=== PATIENT | male | born 1980 ===

== ENCOUNTER 2017-03-16 02:26 | Inpatient (IN) ==
--- NOTE | 2017-03-16 03:08 | Emergency Department Note ---
I, Maddie Guido, am scribing for, and in the presence of, Paola Sawant DO 02:57. IJese Debra, DO, personally performed the services described in this documentation, ascribed by Maddie Guido in my presence, and it is both accurate and complete . Arrival - Arrival Chief Complaint: Extremity Problem ED Nursing Triage Note: C/O Wound to left great toe. Onset last week- Pt reports that he is supposed to be on Metformin and Glipizide, but doesn't take them. Pt was transferred from [facility] for further evaluation Mode of Arrival: Stretcher Limitations: No Limitations Source: Patient Time Seen by Provider: 03/16/17 02:36 - History of Present Illness HPI Narrative: Pt is a 36 y/o male who was transferred from [facility] for further evaluation of left great toe wound that has been ongoing for unknown time. Pt notes having some drainage. Pt is DM and is non compliant with taking Metformin and Glipizide medications. Onset (ago): unknown Consistency: constant Severity: moderate Severity scale (1-10): 7 Quality: aching Allergies/Adverse Reactions: Allergies Allergy/AdvReac Type Severity Reaction Status Date / Time No Known Allergies Allergy Unverified 03/16/17 02:29 Home Medications: Home Medications Medication Instructions Recorded Confirmed Type Aspirin Tab 325 mg PO DAILY 06/22/16 06/22/16 History Clotrimazole/Betamethasone Dip 1 applic TOP BID 06/22/16 06/22/16 History [Clotrimazole/Betamethasone Cream] Lisinopril [Prinivil] 10 mg PO DAILY 06/22/16 06/22/16 History Mupirocin 2% Oint [Bactroban 2% 1 applic TOP TID 06/22/16 06/22/16 History Oint] glipiZIDE XL [Glucotrol Xl] 5 mg PO DAILY W/BREAKFAST 06/22/16 06/22/16 History metFORMIN [Glucophage] 1,000 mg PO BID W/MEALS 06/22/16 06/22/16 History No Known Home Medications [No 03/16/17 03/16/17 History Known Home Medications] Review of System - Review of System 12 point system: reviewed and no additional remarkable complaints except as stated - Review of System Constitutional: Absent: fever Musculoskeletal: Present: leg pain (left great toe wound with drainage). Absent : arm pain, back pain, neck pain Skin: Absent: rash Neurological: Absent: headache Medical,Surgical,& Family Hx - Medical History Cardio: History of: Hypertension Endocrine: History of: Diabetes Mellitus (NIDDM) - Family History Family History: Reports;: Family Diabetes - Social History Smoking Status: Never smoker Frequency of Alcohol Use: Frequently Type of Drug Use: None Exam Vital Signs: Vital Signs Temperature 99.3 F 03/16/17 02:31 Pulse Rate 83 03/16/17 02:31 Respiratory Rate 20 03/16/17 02:31 Blood Pressure 106/70 03/16/17 02:31 O2 Sat by Pulse Oximetry 97 03/16/17 02:30 - General General appearance: alert, in no apparent distress, obese (mildly) - Head Head exam: Present: atraumatic, normocephalic - Eye Eye exam: Present: PERRL, EOMI - ENT ENT exam: Present: mucous membranes moist. Absent: mucous membranes dry - Neck Neck exam: Present: full ROM. Absent: tenderness - Chest Chest inspection: Present: symmetric chest wall rise. Absent: tenderness - Respiratory Respiratory exam: Present: normal lung sounds bilaterally. Absent: respiratory distress - Cardiovascular Cardiovascular exam: Present: regular rate, normal rhythm, normal heart sounds - Abdominal Exam Abdominal exam: Present: soft. Absent: distention, tenderness - Extremities Exam Extremities exam: Present: full ROM, tenderness (left great toe is blacken with purulent drainage but good pulses). Absent: pedal edema - Neurological Exam Neurological exam: Present: alert, oriented X3, CN II-XII intact. Absent: motor sensory deficit - Psychiatric Psychiatric exam: Present: normal affect, normal mood - Skin Skin exam: Present: warm, dry Course Course Narrative: spoke with hospitalist who will admit pt Disposition Clinical Impression: Decubital ulcer Case discussed with: patient Disposition: Still a Patient Condition: Stable Time of Disposition: 04:27
[2017-03-16] MEDS ORDERED: cefTRIAXone 1,000 MG VIAL ONE (04:45)
[2017-03-16] MEDS ORDERED: GLUCAGON 1 MG VIAL IM PRN (05:09)
[2017-03-16] MEDS ORDERED: DEXTROSE 50% 25 GM/50 ML VIAL IV PRN (05:09)
[2017-03-16] MEDS ORDERED: DOCUSATE SODIUM 100 MG CAPSULE PO PRN (05:09)
[2017-03-16] MEDS ORDERED: ONDANSETRON 4 MG/2 ML VIAL IV PRN ×2 (05:09→11:55)
--- NOTE | 2017-03-16 05:17 | Hospitalist History & Physical ---
Assessment and Plan (1) Diabetic foot infection Status: Acute Assessment and plan: Patient appeared to have diabetic foot infection is patient involved left big toe with the wound. Will consult Dr. Cotto was on-call for surgery. I will start on vancomycin and Zosyn follow blood cultures which will be ordered and need infectious disease to assist with antibiotic management. I will order the x-ray of the foot and also ordered the venous Dopplers due to associated swelling of the left lower extremities which could be just infection but want to make sure there is no associated DVT. Patient is at present placed on DVT prophylaxis with Lovenox but venous Doppler has to be followed up to go to therapeutic dose if there is underlying DVT Current Visit: Yes (2) Diabetes mellitus Status: Chronic Assessment and plan: Patient noncompliant to oral hypoglycemic. I will monitor blood sugar with the short-acting insulin coverage. Patient is kajal to insulin I will start with low-dose sliding scale check hemoglobin A1c Current Visit: Yes (3) History of hypertension Status: Chronic Assessment and plan: Patient has history of hypertension but his systolic blood pressure is in low 100. Patient is on lisinopril I will hold this for now. Although LOREN inhibitor associated with the renal protection defect and diabetes, I will hold it at present due to borderline low blood pressure Current Visit: Yes History of Present Illness Chief complaint: Wound left big toe History of present illness: Mr. Tucker is a 36 year old male with history of diabetes mellitus and hypertension. He started noting pus coming out of his left big toe yesterday with some subjective fever and chills. He noted a blister more than a week ago left big toe which now progressed to wound and started having pus coming out. No history of fever reported and there is no pain in the foot associated with that . He went to [facility] and was transferred to [facility] ER. I do not have a record from his visit at [facility]. Was noted to have a temperature of 99.3 blood pressure 106/70 he has history of diabetes on oral hypoglycemic but has not been taking the medication I do not know his blood sugar reading at [facility] but here limited lab work done and noted has creatinine 0.69 and glucose 195. He denies any nausea vomiting diarrhea urinary symptoms cough chest pain shortness of breath. He did have a headache for which he was given Tylenol at the [facility] and is resolved now. Home Medications Medication Instructions Recorded Confirmed Type Aspirin Tab 325 mg PO DAILY 06/22/16 06/22/16 History Clotrimazole/Betamethasone Dip 1 applic TOP BID 06/22/16 06/22/16 History [Clotrimazole/Betamethasone Cream] Lisinopril [Prinivil] 10 mg PO DAILY 06/22/16 06/22/16 History Mupirocin 2% Oint [Bactroban 2% 1 applic TOP TID 06/22/16 06/22/16 History Oint] glipiZIDE XL [Glucotrol Xl] 5 mg PO DAILY W/BREAKFAST 06/22/16 06/22/16 History metFORMIN [Glucophage] 1,000 mg PO BID W/MEALS 06/22/16 06/22/16 History No Known Home Medications [No 03/16/17 03/16/17 History Known Home Medications] Allergies Allergy/AdvReac Type Severity Reaction Status Date / Time No Known Allergies Allergy Unverified 03/16/17 02:29 Medical,Surgical,& Family Hx - Medical History Cardio: History of: Hypertension Endocrine: History of: Diabetes Mellitus (NIDDM) - Surgical History Additional Surgical History: Patient's had wound left knee required surgery in 2002 detail of the procedure not available - Family History Family History: Reports;: Family Diabetes - Social History Smoking Status: Never smoker Frequency of Alcohol Use: Frequently Type of Drug Use: None Review of systems: Review of system was done comprehensively negative unless noted in HPI Exam - Constitutional Vitals: Period Temp Pulse Resp BP Sys/Nolasco Pulse Ox Last 24 Hr 99.3 F-99.3 F 83-85 20-20 106-106/70-70 97 General appearance: no acute distress, over weight - Head Head exam: Present: normal inspection, normocephalic, atraumatic - Eye Eye exam: Present: EOMI Pupils: Present: JANIE, normal accommodation - ENT ENT exam: Present: normal oropharynx - Neck Neck exam: Present: normal inspection. Absent: lymphadenopathy, meningismus - Respiratory Respiratory exam: Present: clear to auscultation bilaterally. Absent: chest wall tenderness, rales, rhonchi - Cardiovascular Cardiovascular exam: Present: regular rate and rhythm. Absent: tachycardia - GI/Abdominal GI/Abdominal exam: Present: normal bowel sounds, soft. Absent: distended, guarding, mass, tenderness - Extremities Exam Extremities exam: Present: edema (Left lower extremities especially leg and foot. There is a wWound on the big toe of the left foot with gangrenous tissue covering the solar aspect. Swelling of the left leg and foot) - Neurological Exam Neurological exam: Present: alert, oriented X3 - Psychiatric Psychiatric exam: Present: normal affect, normal mood - Skin Skin exam: Present: normal color
[2017-03-16 06:56] LABS: Basophils # 0.1 10*3/uL (0.0-0.2); Basophils % 0.4 % (0.0-0.8); Eosinophils # 0.2 10*3/uL (0.0-0.87); Eosinophils % 1.8 % (0.00-10.9); Hematocrit 39.7 VOL% (42.0-52.0); Hemoglobin 14.4 GM/DL (14.0-18.0); Immature Granulocytes % 0.4 %; Immature Granulocytes Absolute 0.05 #; Lymphocytes # 2.5 10*3/uL (1.4-4.0); Lymphocytes % 20.2 % (21.2-54.2); Mean Corpuscular HGB Conc 36.3 GM/DL (32-36); Mean Corpuscular Hemoglobin 31 PG (27-34); Mean Platelet Volume 10.1 FL (9.6-12.0); Monocytes # 1.6 10*3/uL (0.11-0.8); Monocytes % 13.1 % (1.7-12.7); Neutrophils # 7.9 10*3/uL (1.4-7.4); Neutrophils % 64.1 % (38.7-73.9); Platelet Count 257 T/CUMM (130-400); Red Blood Count 4.67 MC/CUMM (3.8-5.5); Red Cell Distribution Width 12.4 % (9.3-17.3); White Blood Count 12.3 T/CUMM (4-12)
[2017-03-16] MEDS: SODIUM CHLORIDE 0.45% 1,000 ML IV SCH (07:03)
[2017-03-16] MEDS: PIPERACILLIN/TAZOBACTAM 3,375 MG in SODIUM CHLORIDE 0.9% 100 ML IV SCH ×2 (07:03→16:48)
[2017-03-16 07:27] LABS: Calcium 8.6 MG/DL (8.5-10.1); Osmolality,Calculated 276.2 MOS/KG (273-304); Potassium 4.1 MMOL/L (3.5-5.1)
--- NOTE | 2017-03-16 08:37 | XRay Report ---
History: Diabetic foot infection. Ulcer left great toe Date: 03/16/2017 Study: Left foot 3 views Comparison exam: No previous There is soft tissue swelling and irregularity associated with the left great toe distally. There is no definite plain film sign of acute osteomyelitis. There is a nondisplaced oblique intra-articular fracture of the base of the fifth proximal phalanx with near-anatomic alignment. This is thought to be recent, possibly subacute, though no definite callus formation is identified. There is mild osteophyte formation and eburnation and joint space narrowing at the first MTP joint. There is mild plantar calcaneal spur formation. There is mild osteophyte formation at the tibiotalar joint. There is soft tissue swelling about the foot in general as well. Impression: No evidence to suggest osteomyelitis Subacute versus acute nondisplaced intra-articular fracture base of the fifth proximal phalanx with near-anatomic alignment Soft tissue swelling PROCEDURE INTERPRETED AT [facility] DEPARTMENT OF RADIOLOGY Final Report Signed by: Dr. Ebony West
--- NOTE | 2017-03-16 08:45 | General Surg History&Physical ---
Assessment and Plan - Time spent with patient Time spent with patient: Less than 30 minutes (1) Diabetic foot infection Status: Acute Assessment and plan: He appears to have wet gangrene of his left great toe and this toe is clearly unsalvageable. This was discussed with the patient. This appears to possibly have an associated necrotizing soft tissue infection and he needs emergent toe amputation and possible debridement of his foot. He understands that this toe could jeopardize his entire lower extremity and make him quite ill. Toe amputation along with the risks of surgery were discussed in detail with the patient and he wishes to proceed. Current Visit: Yes History of Present Illness Chief complaint: Infected left great toe History of present illness: Mr. Tucker is a 36 year old male Who for about 10 days has had increased swelling and discoloration and his left toe turning black. He denies fever or chills. He denies feeling ill. He does not know of any aggravating or alleviating factors. It is not painful. Home Medications Medication Instructions Recorded Confirmed Type Aspirin Tab 325 mg PO DAILY 06/22/16 06/22/16 History Clotrimazole/Betamethasone Dip 1 applic TOP BID 06/22/16 06/22/16 History [Clotrimazole/Betamethasone Cream] Lisinopril [Prinivil] 10 mg PO DAILY 06/22/16 06/22/16 History Mupirocin 2% Oint [Bactroban 2% 1 applic TOP TID 06/22/16 06/22/16 History Oint] glipiZIDE XL [Glucotrol Xl] 5 mg PO DAILY W/BREAKFAST 06/22/16 06/22/16 History metFORMIN [Glucophage] 1,000 mg PO BID W/MEALS 06/22/16 06/22/16 History No Known Home Medications [No 03/16/17 03/16/17 History Known Home Medications] Allergies Allergy/AdvReac Type Severity Reaction Status Date / Time No Known Allergies Allergy Unverified 03/16/17 02:29 Medical,Surgical,& Family Hx - Medical History Cardio: History of: Hypertension Endocrine: History of: Diabetes Mellitus (NIDDM) - Family History Family History: Reports;: Family Diabetes - Social History Smoking Status: Never smoker Frequency of Alcohol Use: Frequently Type of Drug Use: None Exam - Constitutional Vitals: Period Temp Pulse Resp BP Sys/Nolasco Pulse Ox Last 24 Hr 97.9 F-99.3 F 72-85 18-20 106-134/70-79 96-98 General appearance: no acute distress - Head Head exam: Present: normocephalic - Eye Eye exam: Absent: scleral icterus - ENT Mouth exam: Present: normal voice - Neck Neck exam: Present: trachea midline - Respiratory Respiratory exam: Present: clear to auscultation bilaterally. Absent: accessory muscle use - Cardiovascular Cardiovascular exam: Present: RRR - GI/Abdominal GI/Abdominal exam: Present: soft. Absent: distended, tenderness - Extremities Exam Extremities exam: Present: other (The left great toe is black and necrotic and appears to have wet gangrene. There is some erythema proximal to this. I do not appreciate crepitus or tenderness in his foot.). Absent: edema - Constitutional Constitutional: Absent: chills, fever(s) - Cardiovascular Cardiovascular: Absent: chest pain at rest, chest pain with activity, dyspnea, dyspnea on exertion, syncope - Respiratory Respiratory: Absent: dyspnea, hemoptysis, dyspnea on exertion - Gastrointestinal Gastrointestinal: Absent: abdominal pain, hematemesis, hematochezia, nausea, vomiting, jaundice - Genitourinary Genitourinary: Absent: hematuria - Musculoskeletal Musculoskeletal: Absent: back pain - Neurological Neurological: Absent: focal weakness, syncope - Endocrine Endocrine: Absent: polyuria Hematologic/Lymphatic: Absent: easy bleeding, easy bruising Results - Labs CBC & BMP: 03/16/17 06:46 03/16/17 06:46 Lab Results: I have reviewed the past 24 hour labs
[2017-03-16] MEDS: INSULIN LISPRO 100 UNIT/ML SUBCUT SCH ×4 (10:35→21:54)
[2017-03-16] MEDS: ENOXAPARIN 40 MG/0.4 ML SYRINGE SUBCUT SCH (10:36)
[2017-03-16] MEDS ORDERED: BUPIVACAINE 0.25% 50 ML VIAL ONE (10:36)
[2017-03-16] MEDS: PANTOPRAZOLE 40 MG TABLET PO SCH (10:36)
[2017-03-16] MEDS ORDERED: PROPOFOL 200 MG/20 ML VIAL IV ONE (10:58)
[2017-03-16] MEDS: VANCOMYCIN INJ 1,500 MG in SODIUM CHLORIDE 0.9% 500 ML IV SCH ×2 (11:10→22:08)
--- NOTE | 2017-03-16 11:39 | Operative Note ---
Date of procedure: 03/16/17 Pre-op diagnosis: Wet gangrene left great toe Post-op diagnosis: same Procedure: Ray amputation left great toe and metatarsal head Findings and technique: After informed consent was obtained the patient was brought the operating room and placed in supine position. After IV sedation was administered the patient's left foot was prepped and draped in usual sterile fashion. Local anesthesia was infiltrated and an elliptical incision made at the base of the toe extending this dorso medially over the first metatarsal. The metatarsal head was dissected free and the metatarsal transected with a bone cutter and the metatarsal head and toe all removed en bloc as a single specimen. No necrosis was seen to extend up into the foot. All of the tissue that I cut across was viable. Hemostasis was obtained with electrocautery and the wound copiously irrigated and the wound then closed with interrupted 3-0 nylon suture leaving the end of the ellipse open and packed with iodoform gauze. A bulky dressing was then applied. Anesthesia: MAC, local Surgeon / Physician: Carlos Cotto III. Estimated blood loss: other (50 mL) Specimens: other (Great toe and metatarsal head) Condition: stable Disposition: PACU Results - Labs CBC & BMP: 03/16/17 06:46 03/16/17 06:46 Discharge Plan - Discharge Medications No Action metFORMIN [Glucophage] 1,000 mg PO BID W/MEALS glipiZIDE XL [Glucotrol Xl] 5 mg PO DAILY W/BREAKFAST Mupirocin 2% Oint [Bactroban 2% Oint] 1 applic TOP TID Lisinopril [Prinivil] 10 mg PO DAILY Clotrimazole/Betamethasone Dip [Clotrimazole/Betamethasone Cream] 1 applic TOP BID Aspirin Tab 325 mg PO DAILY No Known Home Medications [No Known Home Medications] - Follow Up or Referral - Forms/Instructions
[2017-03-16] MEDS ORDERED: HYDROmorphone 2 MG/1 ML VIAL ONE (11:48)
[2017-03-16] MEDS ORDERED: ONDANSETRON 4 MG/2 ML VIAL ONE (11:48)
[2017-03-16] MEDS ORDERED: HYDROmorphone 2 MG/1 ML VIAL IV PRN (11:55)
--- NOTE | 2017-03-16 14:33 | Ultrasound Report ---
History: Left leg swelling Date: 03/16/2017 Study: Left lower extremity color-flow venous Doppler study Comparison exam: No previous similar available Color Doppler, wave form analysis, and compression analysis of the deep veins of the left lower extremity from the common femoral vein level through the popliteal vein level shows that the veins are readily compressible. There is no abnormal intraluminal material to suggest thrombus. Waveform analysis is unremarkable. Ultrasound images were captured and archived Impression: No evidence of DVT on the left PROCEDURE INTERPRETED AT [facility] DEPARTMENT OF RADIOLOGY Final Report Signed by: Dr. Ebony West
--- NOTE | 2017-03-16 15:43 | Anesthesia Post-Op ---
Anesthesia Post OP - Post Ansesthetic Evaluation Patient seen in post op: Yes Resp: within normal limits CV: within normal limits Mental: within normal limits Temp: within normal limits [id number]: within normal limits Nausea and Vomiting: within normal limits Pain: within normal limits
[2017-03-16] MEDS ORDERED: KETAMINE 500 MG/10 ML VIAL ONE (15:46)
[2017-03-16] MEDS ORDERED: fentaNYL 100 MCG/2 ML VIAL ONE (15:46)
[2017-03-16] MEDS ORDERED: MIDAZOLAM 2 MG/2 ML VIAL ONE (15:46)
[2017-03-17] MEDS: PIPERACILLIN/TAZOBACTAM 3,375 MG in SODIUM CHLORIDE 0.9% 100 ML IV SCH ×3 (00:19→17:29)
[2017-03-17 05:24] LABS: Basophils # 0.1 10*3/uL (0.0-0.2); Basophils % 0.6 % (0.0-0.8); Eosinophils # 0.3 10*3/uL (0.0-0.87); Eosinophils % 3.4 % (0.00-10.9); Hematocrit 38.4 VOL% (42.0-52.0); Hemoglobin 13.6 GM/DL (14.0-18.0); Immature Granulocytes % 0.3 %; Immature Granulocytes Absolute 0.03 #; Lymphocytes # 1.9 10*3/uL (1.4-4.0); Lymphocytes % 21.8 % (21.2-54.2); Mean Corpuscular HGB Conc 35.4 GM/DL (32-36); Mean Corpuscular Hemoglobin 30 PG (27-34); Mean Corpuscular Volume 85.3 FL (87-102); Mean Platelet Volume 10.1 FL (9.6-12.0); Monocytes # 0.9 10*3/uL (0.11-0.8); Monocytes % 10.6 % (1.7-12.7); Neutrophils # 5.5 10*3/uL (1.4-7.4); Neutrophils % 63.3 % (38.7-73.9); Platelet Count 211 T/CUMM (130-400); Red Cell Distribution Width 12.3 % (9.3-17.3); White Blood Count 8.8 T/CUMM (4-12)
[2017-03-17 05:53] LABS: Osmolality,Calculated 280.5 MOS/KG (273-304); Potassium 3.8 MMOL/L (3.5-5.1)
--- NOTE | 2017-03-17 06:13 | Event Note ---
He feels well. He has minimal pain. His dressing is dry and he is afebrile. Will probably take down his dressing tomorrow.
[2017-03-17] MEDS: INSULIN LISPRO 100 UNIT/ML SUBCUT SCH ×4 (07:55→20:23)
[2017-03-17] MEDS: PANTOPRAZOLE 40 MG TABLET PO SCH (10:21)
[2017-03-17] MEDS: ENOXAPARIN 40 MG/0.4 ML SYRINGE SUBCUT SCH (10:21)
[2017-03-17] MEDS: SODIUM CHLORIDE 0.45% 1,000 ML IV SCH ×2 (10:24→20:30)
[2017-03-17] MEDS ORDERED: MORPHINE 2 MG/1 ML SYRINGE IV PRN (11:16)
--- NOTE | 2017-03-17 11:50 | Hospitalist Progress Note ---
Assessment and Plan (1) Hypertension Status: Acute Assessment and plan: Restart lisinopril Current Visit: Yes (2) Diabetic foot infection Status: Acute Assessment and plan: Surgery managing s/p amputation of left great toe and metatarsal head Continue zosyn and vancomycin for now Current Visit: Yes (3) Diabetes mellitus Status: Chronic Assessment and plan: Starting nph SSI Current Visit: Yes Hospitalist: Subjective Interval history: No acute events overnight. Reports some pain in his foot, the pain medicine just makes him go to sleep. Exam - Constitutional Vitals: Period Temp Pulse Resp BP Sys/Nolasco Pulse Ox Last 24 Hr 97.9 F-98.5 F 70-85 16-20 119-169/76-92 90-98 General appearance: over weight - Head Head exam: Present: normocephalic, atraumatic - Eye Eye exam: Present: EOMI Pupils: Present: JANIE - ENT ENT exam: Present: normal exam - Neck Neck exam: Present: normal inspection - Respiratory Respiratory exam: Present: clear to auscultation bilaterally. Absent: rhonchi, wheezes - Cardiovascular Cardiovascular exam: Present: regular rate and rhythm - GI/Abdominal GI/Abdominal exam: Present: normal bowel sounds, soft. Absent: tenderness, rebound - Extremities Exam Extremities exam: Present: normal inspection, other (Left foot wrapped) - Back Exam Back exam: Present: normal inspection - Neurological Exam Neurological exam: Present: alert, oriented X3 - Psychiatric Psychiatric exam: Present: normal affect, normal mood - Skin Skin exam: Present: warm, intact Results - Labs CBC & BMP: 03/17/17 05:04 03/17/17 05:04
[2017-03-17] MEDS: VANCOMYCIN INJ 1,500 MG in SODIUM CHLORIDE 0.9% 500 ML IV SCH ×2 (12:09→23:56)
[2017-03-17] MEDS: LISINOPRIL 10 MG TABLET PO SCH (12:12)
[2017-03-17] MEDS: INSULIN NPH 100 UNIT/ML SUBCUT SCH (17:24)
[2017-03-18] MEDS: PIPERACILLIN/TAZOBACTAM 3,375 MG in SODIUM CHLORIDE 0.9% 100 ML IV SCH ×2 (00:09→09:19)
[2017-03-18 06:16] LABS: Basophils % 0.4 % (0.0-0.8); Eosinophils # 0.3 10*3/uL (0.0-0.87); Eosinophils % 3.7 % (0.00-10.9); Hematocrit 40.6 VOL% (42.0-52.0); Immature Granulocytes % 0.4 %; Immature Granulocytes Absolute 0.03 #; Lymphocytes # 2.2 10*3/uL (1.4-4.0); Lymphocytes % 25.7 % (21.2-54.2); Mean Corpuscular HGB Conc 34.5 GM/DL (32-36); Mean Corpuscular Hemoglobin 30 PG (27-34); Mean Corpuscular Volume 87.5 FL (87-102); Mean Platelet Volume 10.2 FL (9.6-12.0); Monocytes % 11.3 % (1.7-12.7); Neutrophils # 4.9 10*3/uL (1.4-7.4); Neutrophils % 58.5 % (38.7-73.9); Platelet Count 247 T/CUMM (130-400); Red Blood Count 4.64 MC/CUMM (3.8-5.5); Red Cell Distribution Width 12.5 % (9.3-17.3); White Blood Count 8.4 T/CUMM (4-12)
[2017-03-18 06:53] LABS: Magnesium 2.3 MG/DL (1.8-2.4); Osmolality,Calculated 282.4 MOS/KG (273-304); Potassium 4.1 MMOL/L (3.5-5.1)
--- NOTE | 2017-03-18 08:40 | Event Note ---
He feels well. He is afebrile and has a normal white blood cell count. His dressing is dry. We will take down his dressing today and check his wound. He may be ready to go home later today or tomorrow.
[2017-03-18] MEDS: INSULIN NPH 100 UNIT/ML SUBCUT SCH ×2 (09:03→17:54)
[2017-03-18] MEDS: LISINOPRIL 10 MG TABLET PO SCH (09:08)
[2017-03-18] MEDS: PANTOPRAZOLE 40 MG TABLET PO SCH (09:11)
[2017-03-18] MEDS: INSULIN LISPRO 100 UNIT/ML SUBCUT SCH ×4 (09:15→22:18)
[2017-03-18] MEDS: ENOXAPARIN 40 MG/0.4 ML SYRINGE SUBCUT SCH (09:17)
--- NOTE | 2017-03-18 12:29 | Hospitalist Progress Note ---
Assessment and Plan (1) Hypertension Status: Acute Assessment and plan: lisinopril Current Visit: Yes (2) Diabetic foot infection Status: Acute Assessment and plan: Surgery managing s/p amputation of left great toe and metatarsal head Discontinue vanc and zosyn, start levaquin and clindamycin po Current Visit: Yes (3) Diabetes mellitus Status: Chronic Assessment and plan: Increasing NPH SSI Current Visit: Yes Hospitalist: Subjective Interval history: No acute events overnight. Reports some pain, but managable with pain medications. Per surgery, possible discharge soon. Exam - Constitutional Vitals: Period Temp Pulse Resp BP Sys/Nolasco Pulse Ox Last 24 Hr 97.7 F-98.9 F 65-72 18-20 119-172/74-95 93-98 General appearance: over weight - Head Head exam: Present: normocephalic, atraumatic - Eye Eye exam: Present: EOMI Pupils: Present: JANIE - ENT ENT exam: Present: normal exam - Neck Neck exam: Present: normal inspection - Respiratory Respiratory exam: Present: clear to auscultation bilaterally. Absent: rhonchi, wheezes - Cardiovascular Cardiovascular exam: Present: regular rate and rhythm - GI/Abdominal GI/Abdominal exam: Present: normal bowel sounds, soft. Absent: tenderness, rebound - Extremities Exam Extremities exam: Present: edema (left foot wrapped) - Back Exam Back exam: Present: normal inspection - Neurological Exam Neurological exam: Present: alert, oriented X3 - Psychiatric Psychiatric exam: Present: normal affect, normal mood - Skin Skin exam: Present: warm, intact Results - Labs CBC & BMP: 03/18/17 05:28 03/18/17 05:28
--- NOTE | 2017-03-18 12:29 | Pathology Report from [facility] ---
[facility] [place] # : [id number] PATIENT NAME : Reji Tucker ORDERING DR : LUIGI ODELL III, MD CLINICAL HX: Infected great toe POST-OP DX: Same SPECIMEN INFO: LT great toe GROSS DESCRIPTION: Received in formalin labeled REJI TUCKER is a left great toe and distal metatarsal measuring 9 x 3.5 x 3.2 cm. The skin is light vidal with skin sloughing present. There is a large hemorrhagic ulcerated area measuring up to 5.5 x 3.5 cm located on the side and back of the distal portion of the toe. Special Education Administrator sections of gangrenous appearing tissue are submitted in one cassette. DIAGNOSIS FOR REJI TUCKER: LEFT GREAT TOE: Wet gangrene. COLLECTED DATE: 03/18/2017 [facility] [place] REPORT DATE: 03/18/2017 ELECTRONICALLY SIGNED BY: Doug Bloom III, M.D. 03/18/2017 - 9:09:30 [facility]
[2017-03-18] MEDS: SODIUM CHLORIDE 0.45% 1,000 ML IV SCH ×2 (12:50→17:58)
[2017-03-18] MEDS: LEVOFLOXACIN 750 MG TABLET PO SCH (15:58)
[2017-03-18] MEDS: CLINDAMYCIN 150 MG CAPSULE PO SCH ×2 (15:59→23:14)
--- NOTE | 2017-03-18 16:52 | Infectious Disease Consult ---
Assessment and Plan (1) Diabetic foot infection Status: Acute Assessment and plan: This infection was likely polymicrobial but unfortunately we do not have any cultures to guide therapy. Recommendations: Since the infected toe is amputated the patient probably does not require prolonged antibiotic therapy. He had just had his dressing done today so I will take a look at the foot tomorrow. Depending on how it looks will recommend an oral antibiotic therapy for discharge home. Thank you very much for the consult. Will check back on patient tomorrow. Current Visit: Yes (2) Hypertension Status: Acute Current Visit: Yes (3) Diabetes mellitus Status: Chronic Assessment and plan: Uncontrolled with A1c of 10.7% Current Visit: Yes History of Present Illness Chief complaint: Diabetic foot infection History of present illness: Mr. Tucker is a 36 year old male with diabetes which he admits is uncontrolled presented to the hospital 2 days ago with worsening wound to left great toe. He said he had blistered the toe s about a week before with a pair of shoes. The blister got worse and there was eventually drainage of pus from the toe and he had fever up to 100.8. He was admitted started on antibiotics but ultimately required amputation of the great toe. I am asked to advise on antibiotic therapy to go home. The patient never had any fever. Overall he is feeling better. Home Medications Medication Instructions Recorded Confirmed Type Aspirin Tab 325 mg PO DAILY 06/22/16 03/16/17 History Lisinopril [Prinivil] 10 mg PO DAILY 06/22/16 03/16/17 History glipiZIDE XL [Glucotrol Xl] 5 mg PO DAILY W/BREAKFAST 06/22/16 03/16/17 History metFORMIN [Glucophage] 1,000 mg PO BID W/MEALS 06/22/16 03/16/17 History No Known Home Medications [No 03/16/17 03/16/17 History Known Home Medications] Allergies Allergy/AdvReac Type Severity Reaction Status Date / Time No Known Allergies Allergy Unverified 03/16/17 02:29 12 point system: reviewed and no additional remarkable complaints except as stated (Per HPI) Medical,Surgical,& Family Hx - Medical History Cardio: History of: Hypertension Endocrine: History of: Diabetes Mellitus (NIDDM) Musculoskeletal: History of: Amputation (left great toe) - Family History Family History: Reports;: Family Diabetes - Social History Smoking Status: Never smoker Frequency of Alcohol Use: Frequently Type of Drug Use: None Infectious Disease Exam H&P - Constitutional Vitals: Vital Signs Temp Pulse Resp BP Pulse Ox 98.5 F 69 20 150/80 97 03/18/17 15:58 03/18/17 15:58 03/18/17 15:58 03/18/17 15:58 03/18/17 15:58 Intake and Output 03/18/17 03/18/17 03/18/17 07:59 15:59 23:59 Intake Total 1060 / 1060 Output Total 2 / 2 Balance 1058 / 1058 Intake: IV 700 / 700 Zosyn 3,375 mg In Ns 100 200 / 200 ml @ 25 mls/hr IV Q8H JAYNA Rx#:[id number] Vancomycin Inj 1,000 mg 500 / 500 In Ns 500 ml @ 250 mls/hr IV Q12H JAYNA Rx#: [id number] Oral 360 / 360 Output: Urine 2 / 2 Other: # Voids 2 Exam: General: Patient comfortable HEENT: Mucous membranes pink and moist, anicteric acyanotic, JANIE, no oropharyngeal exudates Neck: Supple, no thyroid gland enlargement, no lymphadenopathy Respiratory system: Breath sounds vesicular, no crepitations or wheezes Cardiovascular: Normal S1 and S2, no murmurs appreciated Abdomen: Normal bowel sounds, soft nontender throughout, no organomegaly or mass Genitourinary: No suprapubic pain or bladder distention Extremities: no edema, left foot bandaged Skin: No rash Reports - Labs CBC & BMP: 03/18/17 05:28 03/18/17 05:28 Labs: Laboratory Results - last 24 hr 03/17/17 03/18/17 03/18/17 19:52 05:28 05:28 WBC 8.4 RBC 4.64 Hgb 14.0 Hct 40.6 L MCV 87.5 MCH 30 MCHC 34.5 RDW 12.5 Plt Count 247 MPV 10.2 Neut % (Auto) 58.5 Lymph % (Auto) 25.7 [place] % (Auto) 11.3 Eos % (Auto) 3.7 Baso % (Auto) 0.4 Neut # (Auto) 4.9 Lymph # (Auto) 2.2 [place] # (Auto) 1.0 H Eos # (Auto) 0.3 Baso # (Auto) 0.0 Immature Gran % 0.4 Nucleated RBC % 0.0 Immature Gran # 0.03 Nucleated RBCs # 0.00 Sodium 140 Potassium 4.1 Chloride 103 Carbon Dioxide 29 Anion Gap 12.1 BUN 5 L Creatinine 0.90 GFR Calculation 134 BUN/Creatinine Ratio 5.00 L Glucose 229 H POC Glucose 290 H Calculated Osmolality 282.4 Calcium 8.0 L Magnesium 2.3 03/18/17 03/18/17 03/18/17 06:52 11:20 15:31 WBC RBC Hgb Hct MCV MCH MCHC RDW Plt Count MPV Neut % (Auto) Lymph % (Auto) [place] % (Auto) Eos % (Auto) Baso % (Auto) Neut # (Auto) Lymph # (Auto) [place] # (Auto) Eos # (Auto) Baso # (Auto) Immature Gran % Nucleated RBC % Immature Gran # Nucleated RBCs # Sodium Potassium Chloride Carbon Dioxide Anion Gap BUN Creatinine GFR Calculation BUN/Creatinine Ratio Glucose POC Glucose 226 H 257 H 246 H Calculated Osmolality Calcium Magnesium - Reports Microbiology: No wound cultures were done
[2017-03-19 04:28] LABS: Basophils % 0.3 % (0.0-0.8); Eosinophils # 0.2 10*3/uL (0.0-0.87); Eosinophils % 2.6 % (0.00-10.9); Hematocrit 38.4 VOL% (42.0-52.0); Hemoglobin 13.5 GM/DL (14.0-18.0); Immature Granulocytes % 0.3 %; Immature Granulocytes Absolute 0.03 #; Lymphocytes # 2.6 10*3/uL (1.4-4.0); Lymphocytes % 27.7 % (21.2-54.2); Mean Corpuscular HGB Conc 35.2 GM/DL (32-36); Mean Corpuscular Hemoglobin 30 PG (27-34); Mean Corpuscular Volume 85.1 FL (87-102); Mean Platelet Volume 10.2 FL (9.6-12.0); Monocytes % 11.2 % (1.7-12.7); Neutrophils # 5.4 10*3/uL (1.4-7.4); Neutrophils % 57.9 % (38.7-73.9); Platelet Count 249 T/CUMM (130-400); Red Blood Count 4.51 MC/CUMM (3.8-5.5); Red Cell Distribution Width 12.1 % (9.3-17.3); White Blood Count 9.3 T/CUMM (4-12)
[2017-03-19] MEDS: CLINDAMYCIN 150 MG CAPSULE PO SCH (05:07)
[2017-03-19] MEDS: SODIUM CHLORIDE 0.45% 1,000 ML IV SCH (06:49)
[2017-03-19] MEDS: INSULIN LISPRO 100 UNIT/ML SUBCUT SCH ×2 (08:05→12:45)
[2017-03-19] MEDS: INSULIN NPH 100 UNIT/ML SUBCUT SCH (08:34)
[2017-03-19] MEDS: PANTOPRAZOLE 40 MG TABLET PO SCH (08:34)
[2017-03-19] MEDS: LISINOPRIL 10 MG TABLET PO SCH (08:34)
[2017-03-19] MEDS: ENOXAPARIN 40 MG/0.4 ML SYRINGE SUBCUT SCH (08:34)
--- NOTE | 2017-03-19 08:42 | Discharge Summary ---
<Megan Beltre - Last Filed: 03/19/17 08:32> Hospital Course - Hospital Course Hospital Course: This is a very pleasant 36-year-old male that presented to the ED at [facility] on March 16, 2017 as a lateral transfer from the [facility] for further evaluation of an infection of the left great toe. The patient has a very complex medical history significant for hypertension and diabetes. He has a surgical history of left knee surgery secondary to a wound infection in 2002. The patient presented to the [facility] on the above date with a complaint of a left infected great toe. The patient reported the formation of a fluid-filled blister to the left great toe 1 week prior to presentation. He reported that the wound gradually progressed and he started to have purulent drainage coming out of the left great toe. In addition he reported several episodes of chills accompanied with fever. At the time of presentation at the [facility], his left toe was evaluated and required surgical intervention. He was subsequently transferred to [facility] for continuation of care. He was evaluated at the time of presentation to [facility] an a surgical consult was requested. He was seen by Dr. 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 On March 16, 2017 the patient underwent an elective amputation of the left great toe and metatarsal head under the direction of Dr. Cotto. Empiric antibiotics were continued and an infectious disease consult was requested. His condition is stable, and he has experienced no significant overnight events. Today, we feel that he is indeed appropriate for discharge to follow-up with his primary care physician and Dr. Yadiel Day as directed. He will be discharged with one week of bactrim. I spoke in great detail with the patient regarding the importance of medical and medication compliance. The patient reported noncompliance at the time of admission, however acknowledged understanding of the importance of complying with the suggested medical regimen. Specialty Discharge - Follow Up or Referrals Follow up with: Carlos Cotto III., MD [Physician] - 03/27/17 2:45 pm Discharge Plan - Discharge Medications New HYDROcodone/ACETAMIN 5-325 [[place] 5-325] 1 tablet PO Q4H PRN #30 tablet PRN Reason: Pain Mild (1-3) Sulfameth/Trimeth 800-160 Tab [Bactrim DS Tab] 1 tablet PO BID #14 tablet Continue Lisinopril [Prinivil] 10 mg PO DAILY Aspirin Tab 325 mg PO DAILY glipiZIDE XL [Glucotrol Xl] 5 mg PO DAILY W/BREAKFAST #30 tablet metFORMIN [Glucophage] 1,000 mg PO BID W/MEALS #60 tablet - Follow Up or Referral Follow Up: Carlos Cotto III., MD [Physician] - 03/27/17 2:45 pm - Forms/Instructions Instructions: Diabetic Foot Ulcers (DC) Exam - Constitutional Vitals: Period Temp Pulse Resp BP Sys/Nolasco Pulse Ox Last 24 Hr 97.9 F-100.4 F 62-69 18-20 150-163/79-93 96-100 Discharge Results Procedures and tests throughout hospitalization: Pending Orders 03/16/17 06:46 Blood Culture Stat Labs on day of discharge: Labs from last 24 hours 03/19/17 03/19/17 03/19/17 11:21 07:22 03:56 WBC 9.3 RBC 4.51 Hgb 13.5 L Hct 38.4 L MCV 85.1 L MCH 30 MCHC 35.2 RDW 12.1 Plt Count 249 MPV 10.2 Neut % (Auto) 57.9 Lymph % (Auto) 27.7 [place] % (Auto) 11.2 Eos % (Auto) 2.6 Baso % (Auto) 0.3 Neut # (Auto) 5.4 Lymph # (Auto) 2.6 [place] # (Auto) 1.0 H Eos # (Auto) 0.2 Baso # (Auto) 0.0 Immature Gran % 0.3 Nucleated RBC % 0.0 Immature Gran # 0.03 Nucleated RBCs # 0.00 POC Glucose 196 H 131 H 03/18/17 03/18/17 19:41 15:31 WBC RBC Hgb Hct MCV MCH MCHC RDW Plt Count MPV Neut % (Auto) Lymph % (Auto) [place] % (Auto) Eos % (Auto) Baso % (Auto) Neut # (Auto) Lymph # (Auto) [place] # (Auto) Eos # (Auto) Baso # (Auto) Immature Gran % Nucleated RBC % Immature Gran # Nucleated RBCs # POC Glucose 185 H 246 H Preliminary micro results at discharge 03/16/17 06:46 Blood Culture - Preliminary Blood No growth at 3 days 03/16/17 06:46 Blood Culture - Preliminary Blood No growth at 3 days DS: Provider Date of admission: 03/16/17 05:09 Primary care physician: Eden Ring MD Attending physician on admission: Eulogio Doran MD Consults: 03/16/17 05:09 Consult to Physician [CONS] Routine Comment: Diabetic Foot infection Consulting Provider: Carlos Cotto III. Consulting Provider Notified: No When should Consulting Provider be notified: In am Person Notified: Dr. Cotto Date Notified: 03/16/17 Time Notified: 09:15 Consult Notification Comment: Notified Dr. Cotto while he is making rounds. 03/16/17 05:36 Consult to Pharmacy [CONS] Routine Reason for Pharmacy Consult: Dose/Manage Vancomycin Consult to Physician [CONS] Routine Comment: DFI Consulting Provider: Danielle Camarillo Consulting Provider Notified: Yes When should Consulting Provider be notified: In am Person Notified: michelle yates Date Notified: 03/18/17 Time Notified: 08:53 Discharging clinician: Megan Beltre CNP <Nazraio Rose - Last Filed: 03/19/17 12:13> Hospital Course - Time spent with patient Time with patient DS: Less than 30 minutes Diagnosis - Discharge Diagnosis (1) Hypertension Status: Chronic (2) Diabetic foot infection Status: Resolved (3) Diabetes mellitus Status: Chronic Discharge Plan - Discharge Data Condition at Discharge: Stable Discharge Diet: diabetic diet, low salt diet Activity: increase activity as tolerated Hygiene: no restrictions Weight Bearing at Discharge: weight bear as tolerated Driving: other (no driving when taking narcotic pain medications) Exam - Constitutional General appearance: over weight - Head Head exam: Present: normocephalic, atraumatic - Eye Eye exam: Present: EOMI Pupils: Present: JANIE - ENT ENT exam: Present: normal exam - Neck Neck exam: Present: normal inspection - Respiratory Respiratory exam: Present: clear to auscultation bilaterally - Cardiovascular Cardiovascular exam: Present: regular rate and rhythm - GI/Abdominal GI/Abdominal exam: Present: normal bowel sounds, soft. Absent: tenderness, rebound - Extremities Exam Extremities exam: Present: other (left foot with sutures, no erythema or bleeding noted) - Back Exam Back exam: Present: normal inspection - Neurological Exam Neurological exam: Present: alert, oriented X3 - Psychiatric Psychiatric exam: Present: normal affect, normal mood - Skin Skin exam: Present: warm, intact
[2017-03-19 11:35] VITALS: BP 162/79
--- NOTE | 2017-03-19 12:00 | Infectious Disease Progress ---
Assessment and Plan (1) Diabetic foot infection Status: Acute Assessment and plan: This infection was likely polymicrobial but the gangrenous toe was amputated and there is no gross evidence of residual infection from what I can see clinically. Recommendations: The patient can go home on Bactrim 1 double strength tablet twice a day for 7 days. Current Visit: Yes (2) Hypertension Status: Acute Current Visit: Yes (3) Diabetes mellitus Status: Chronic Assessment and plan: Uncontrolled with A1c of 10.7%. patient informed about this and encouraged to modify diet and lifestyle. Current Visit: Yes Infectious Disease - PN: Subj Interval history: Patient doing well, no fever no nausea vomiting or diarrhea. No cough shortness of breath. Denies pain to left foot. Infectious Disease Exam (PN) - Constitutional Vitals: Temp Pulse Resp BP Pulse Ox 98.5 F 62 18 162/79 96 03/19/17 11:18 03/19/17 11:18 03/19/17 11:18 03/19/17 11:18 03/19/17 11:18 General appearance: over weight Exam: General appearance: no acute distress - Eye Eye exam: Present: EOMI. no icterus Pupils: Present: JANIE - ENT ENT exam: no oropharyhgeal exudates - Extremities Exam Extremities exam: no edema, left greater petition stump noted sutures in situ but the most distal part of the wound is open healthy pink without any drainage. No erythema of the foot. - Skin Skin exam: no rash Results - Labs CBC & BMP: 03/19/17 03:56 03/18/17 05:28 Lab Results: I have reviewed the past 24 hour labs (Blood cultures negative to date) Specialty Discharge - Follow Up or Referrals Follow up with: Carlos Cotto III., MD [Physician] - 03/27/17 2:45 pm
[2017-03-19] MEDS: LEVOFLOXACIN 750 MG TABLET PO SCH (12:45)
== END 2017-03-19 13:46 | disposition home or self-care (01) | DRG 240 ==
LOC: EDBD → EDUNIT# → N.ED 02:26 → N.EDINP 05:09 → SUATTDRO 05:09 → N.3E 05:36
PROVIDERS: ADMIT Internal Medicine; ATTEND Internal Medicine

== ENCOUNTER 2018-10-06 14:55 | Inpatient (IN) ==
[2018-10-06 15:52] LABS: Basophils # 0.1 10*3/uL (0.0-0.2); Basophils % 0.4 % (0.0-0.8); Eosinophils # 0.1 10*3/uL (0.0-0.87); Eosinophils % 0.6 % (0.00-10.9); Hematocrit 40.6 VOL% (42.0-52.0); Hemoglobin 13.8 GM/DL (14.0-18.0); Immature Granulocytes % 0.6 %; Immature Granulocytes Absolute 0.09 #; Lymphocytes # 1.2 10*3/uL (1.4-4.0); Lymphocytes % 7.8 % (21.2-54.2); Mean Corpuscular Hemoglobin 29 PG (27-34); Mean Corpuscular Volume 85.8 FL (87-102); Mean Platelet Volume 10.9 FL (9.6-12.0); Monocytes # 1.4 10*3/uL (0.11-0.8); Monocytes % 9.1 % (1.7-12.7); Neutrophils # 12.3 10*3/uL (1.4-7.4); Neutrophils % 81.5 % (38.7-73.9); Platelet Count 320 T/CUMM (130-400); Red Blood Count 4.73 MC/CUMM (3.8-5.5); Red Cell Distribution Width 12.3 % (9.3-17.3)
[2018-10-06 16:12] LABS: Lactic Acid 2.2 MMOL/L (0.4-2.0)
[2018-10-06 16:13] LABS: Alanine Aminotransferase 19 U/L (16-61); Albumin 2.5 G/DL (3.4-5.0); Alkaline Phosphatase 113 U/L (45-117); Aspartate Amino Transferase 18 U/L (0-37); Blood Urea Nitrogen 17 MG/DL (7-18); Calcium 8.7 MG/DL (8.5-10.1); Glucose 329 MG/DL (74-106); Osmolality,Calculated 269.2 MOS/KG (273-304); Potassium 4.3 MMOL/L (3.5-5.1); Sodium 127 MMOL/L (136-145); Total Protein 9.9 G/DL (6.4-8.3)
[2018-10-06] MEDS ORDERED: SODIUM CHLORIDE 0.9% 1,000 ML IV STA (16:24)
[2018-10-06] MEDS ORDERED: VANCOMYCIN INJ 1,000 MG in SODIUM CHLORIDE 0.9% 250 ML IV STA (16:24)
[2018-10-06] MEDS ORDERED: GLUCAGON 1 MG VIAL IM PRN (16:42)
[2018-10-06] MEDS ORDERED: DEXTROSE 50% 25 GM/50 ML VIAL IV PRN (16:42)
[2018-10-06] MEDS ORDERED: ONDANSETRON 4 MG/2 ML VIAL IV PRN (16:48)
[2018-10-06] MEDS ORDERED: MORPHINE 4 MG/1 ML VIAL IV PRN (16:48)
[2018-10-06] MEDS ORDERED: LIDOCAINE 1% 20 ML VIAL ONE (17:04)
[2018-10-06] MEDS ORDERED: BUPIVACAINE 0.5% 50 ML VIAL ONE (17:04)
[2018-10-06] MEDS ORDERED: fentaNYL 100 MCG/2 ML VIAL ONE (18:20)
[2018-10-06] MEDS ORDERED: PROPOFOL 200 MG/20 ML VIAL IV ONE (18:20)
[2018-10-06] MEDS ORDERED: SEVOFLURANE 1 UNIT/15 MINUTE INH ONE (18:20)
[2018-10-06] MEDS ORDERED: MIDAZOLAM 2 MG/2 ML VIAL ONE (18:20)
[2018-10-06] MEDS ORDERED: PHENYLEPHRINE 10 MG/1 ML VIAL IV ONE (18:21)
[2018-10-06] MEDS ORDERED: DEXAMETHASONE 10 MG/1 ML VIAL ONE (18:21)
[2018-10-06] MEDS ORDERED: ONDANSETRON 4 MG/2 ML VIAL ONE (18:21)
[2018-10-06] MEDS ORDERED: KETOROLAC 30 MG/1 ML VIAL ONE (18:21)
[2018-10-06] MEDS: INSULIN REGULAR 100 UNIT/ML SUBCUT SCH ×3 (19:47→23:49)
[2018-10-06] MEDS: ENOXAPARIN 40 MG/0.4 ML SYRINGE SUBCUT SCH (20:32)
[2018-10-06] MEDS: SODIUM CHLORIDE 0.9% 1,000 ML IV SCH (20:32)
[2018-10-06] MEDS: PIPERACILLIN/TAZOBACTAM 3,375 MG in SODIUM CHLORIDE 0.9% 100 ML IV SCH (20:38)
[2018-10-07] MEDS: VANCOMYCIN INJ 1,500 MG in SODIUM CHLORIDE 0.9% 500 ML IV SCH ×2 (04:09→16:57)
[2018-10-07 07:37] LABS: Basophils % 0.2 % (0.0-0.8); Hematocrit 38.8 VOL% (42.0-52.0); Hemoglobin 12.7 GM/DL (14.0-18.0); Immature Granulocytes % 0.8 %; Lymphocytes % 7.9 % (21.2-54.2); Mean Corpuscular HGB Conc 32.7 GM/DL (32-36); Mean Corpuscular Hemoglobin 28 PG (27-34); Mean Corpuscular Volume 86.8 FL (87-102); Monocytes # 0.4 10*3/uL (0.11-0.8); Monocytes % 3.1 % (1.7-12.7); Neutrophils # 10.6 10*3/uL (1.4-7.4); Platelet Count 276 T/CUMM (130-400); Red Blood Count 4.47 MC/CUMM (3.8-5.5); Red Cell Distribution Width 12.5 % (9.3-17.3); White Blood Count 12.1 T/CUMM (4-12)
[2018-10-07] MEDS: INSULIN REGULAR 100 UNIT/ML SUBCUT SCH ×4 (08:02→21:29)
[2018-10-07] MEDS: PANTOPRAZOLE 40 MG TABLET PO SCH (08:02)
[2018-10-07 08:10] LABS: Albumin 1.9 G/DL (3.4-5.0); Bilirubin,Total 0.8 MG/DL (0.2-1.0); Calcium 7.6 MG/DL (8.5-10.1); Osmolality,Calculated 286.1 MOS/KG (273-304); Potassium 3.9 MMOL/L (3.5-5.1)
[2018-10-07] MEDS: PIPERACILLIN/TAZOBACTAM 3,375 MG in SODIUM CHLORIDE 0.9% 100 ML IV SCH (08:48)
[2018-10-07] MEDS ORDERED: PIPERACILLIN/TAZOBACTAM 4,500 MG in SODIUM CHLORIDE 0.9% 100 ML IV SCH (09:00)
[2018-10-07] MEDS ORDERED: DIPHTHERIA/TETANUS ADULT VACCINE 0.5 ML VIAL IM ONE (12:00)
[2018-10-07] MEDS: CLINDAMYCIN INJ 900 MG in PREMIX 1 EACH IV SCH ×2 (13:03→21:28)
[2018-10-07] MEDS ORDERED: hydrALAZINE 20 MG/1 ML VIAL IV PRN (14:14)
[2018-10-07] MEDS: SODIUM CHLORIDE 0.9% 1,000 ML IV SCH (15:58)
[2018-10-07] MEDS: PENICILLIN G POTASSIUM INJ 4,000,000 UNIT in SODIUM CHLORIDE 0.9% 100 ML IV SCH ×2 (16:01→21:28)
[2018-10-07] MEDS: ENOXAPARIN 40 MG/0.4 ML SYRINGE SUBCUT SCH (21:29)
[2018-10-08] MEDS: PENICILLIN G POTASSIUM INJ 4,000,000 UNIT in SODIUM CHLORIDE 0.9% 100 ML IV SCH ×6 (00:26→22:04)
[2018-10-08] MEDS: SODIUM CHLORIDE 0.9% 1,000 ML IV SCH ×2 (04:39→22:06)
[2018-10-08] MEDS: VANCOMYCIN INJ 1,500 MG in SODIUM CHLORIDE 0.9% 500 ML IV SCH (04:40)
[2018-10-08] MEDS: CLINDAMYCIN INJ 900 MG in PREMIX 1 EACH IV SCH ×3 (05:21→23:58)
[2018-10-08 05:31] LABS: Basophils % 0.1 % (0.0-0.8); Eosinophils % 0.1 % (0.00-10.9); Hematocrit 34.5 VOL% (42.0-52.0); Hemoglobin 11.8 GM/DL (14.0-18.0); Immature Granulocytes % 0.6 %; Immature Granulocytes Absolute 0.07 #; Lymphocytes # 1.7 10*3/uL (1.4-4.0); Lymphocytes % 13.7 % (21.2-54.2); Mean Corpuscular HGB Conc 34.2 GM/DL (32-36); Mean Corpuscular Hemoglobin 29 PG (27-34); Mean Corpuscular Volume 85.6 FL (87-102); Mean Platelet Volume 11.1 FL (9.6-12.0); Monocytes # 1.2 10*3/uL (0.11-0.8); Monocytes % 9.5 % (1.7-12.7); Neutrophils # 9.6 10*3/uL (1.4-7.4); Platelet Count 277 T/CUMM (130-400); Red Blood Count 4.03 MC/CUMM (3.8-5.5); Red Cell Distribution Width 12.4 % (9.3-17.3); White Blood Count 12.6 T/CUMM (4-12)
[2018-10-08 05:44] LABS: Calcium 7.7 MG/DL (8.5-10.1); Osmolality,Calculated 285.8 MOS/KG (273-304); Potassium 3.8 MMOL/L (3.5-5.1)
[2018-10-08 06:06] LABS: Hypochromasia 1+; Microcytosis 1+
[2018-10-08] MEDS: INSULIN REGULAR 100 UNIT/ML SUBCUT SCH ×4 (09:01→22:00)
[2018-10-08] MEDS: PANTOPRAZOLE 40 MG TABLET PO SCH (09:01)
[2018-10-08] MEDS ORDERED: BENZONATATE 100 MG CAPSULE PO PRN (10:50)
[2018-10-08] MEDS ORDERED: LIDOCAINE 1%/EPI INJ 20 ML VIAL ONE (12:34)
[2018-10-08] MEDS ORDERED: LIDOCAINE 1% 20 ML VIAL ONE (12:34)
[2018-10-08] MEDS ORDERED: BUPIVACAINE 0.5% 50 ML VIAL ONE (12:34)
[2018-10-08] MEDS: SODIUM CHLORIDE 0.65% NASAL SPRAY 45 ML BOTTLE BOTH NARES SCH ×3 (12:54→22:00)
[2018-10-08] MEDS ORDERED: PROPOFOL 200 MG/20 ML VIAL IV ONE (14:58)
[2018-10-08] MEDS ORDERED: SEVOFLURANE 1 UNIT/15 MINUTE INH ONE (14:58)
[2018-10-08] MEDS ORDERED: ONDANSETRON 4 MG/2 ML VIAL ONE (14:59)
[2018-10-08] MEDS ORDERED: MIDAZOLAM 2 MG/2 ML VIAL ONE (14:59)
[2018-10-08] MEDS ORDERED: PHENYLEPHRINE 1 MG/10 ML SYRINGE IV ONE (14:59)
[2018-10-08] MEDS ORDERED: KETOROLAC 30 MG/1 ML VIAL ONE (14:59)
[2018-10-08] MEDS ORDERED: fentaNYL 100 MCG/2 ML VIAL ONE (14:59)
[2018-10-08] MEDS ORDERED: DEXAMETHASONE 10 MG/1 ML VIAL ONE (14:59)
[2018-10-08] MEDS: ENOXAPARIN 40 MG/0.4 ML SYRINGE SUBCUT SCH (22:00)
[2018-10-09] MEDS: PENICILLIN G POTASSIUM INJ 4,000,000 UNIT in SODIUM CHLORIDE 0.9% 100 ML IV SCH ×3 (01:01→09:39)
[2018-10-09 04:46] LABS: Hematocrit 32.1 VOL% (42.0-52.0); Hemoglobin 10.6 GM/DL (14.0-18.0); Immature Granulocytes % 0.3 %; Immature Granulocytes Absolute 0.02 #; Lymphocytes # 1.7 10*3/uL (1.4-4.0); Lymphocytes % 20.8 % (21.2-54.2); Mean Corpuscular Hemoglobin 29 PG (27-34); Mean Corpuscular Volume 87.5 FL (87-102); Mean Platelet Volume 11.3 FL (9.6-12.0); Monocytes # 0.8 10*3/uL (0.11-0.8); Monocytes % 10.6 % (1.7-12.7); Neutrophils # 5.4 10*3/uL (1.4-7.4); Neutrophils % 68.3 % (38.7-73.9); Platelet Count 272 T/CUMM (130-400); Red Blood Count 3.67 MC/CUMM (3.8-5.5); White Blood Count 7.9 T/CUMM (4-12)
[2018-10-09 05:17] LABS: Calcium 7.2 MG/DL (8.5-10.1); Osmolality,Calculated 288.7 MOS/KG (273-304); Potassium 4.1 MMOL/L (3.5-5.1)
[2018-10-09] MEDS: CLINDAMYCIN INJ 900 MG in PREMIX 1 EACH IV SCH (05:26)
[2018-10-09] MEDS: SODIUM CHLORIDE 0.9% 1,000 ML IV SCH ×3 (06:09→22:45)
[2018-10-09 06:49] LABS: Eosinophils 1 % (0-10); Hypochromasia 1+; Lymphocytes 14 % (20-55); Segmented Neutrophils 79 % (50-85); Total Cells Counted 100
[2018-10-09 06:50] LABS: Microcytosis Slight; Platelet Estimate Normal
[2018-10-09] MEDS: INSULIN REGULAR 100 UNIT/ML SUBCUT SCH ×4 (09:28→21:08)
[2018-10-09] MEDS: SODIUM CHLORIDE 0.65% NASAL SPRAY 45 ML BOTTLE BOTH NARES SCH ×4 (09:37→20:29)
[2018-10-09] MEDS: PANTOPRAZOLE 40 MG TABLET PO SCH (09:38)
[2018-10-09] MEDS: LORATADINE 10 MG TABLET PO SCH (09:38)
[2018-10-09] MEDS ORDERED: PIPERACILLIN/TAZOBACTAM 3,375 MG in SODIUM CHLORIDE 0.9% 100 ML IV SCH (13:00)
[2018-10-09] MEDS: LOSARTAN 50 MG TABLET PO SCH (13:55)
[2018-10-09] MEDS: sitaGLIPtin 100 MG TABLET PO SCH (13:58)
[2018-10-09] MEDS: AMPICILLIN/SULBACTAM 3,000 MG in SODIUM CHLORIDE 0.9% 100 ML IV SCH ×2 (16:00→20:29)
[2018-10-09] MEDS: ENOXAPARIN 40 MG/0.4 ML SYRINGE SUBCUT SCH (20:29)
[2018-10-10] MEDS: AMPICILLIN/SULBACTAM 3,000 MG in SODIUM CHLORIDE 0.9% 100 ML IV SCH ×4 (02:36→21:16)
[2018-10-10 06:10] LABS: Basophils % 0.2 % (0.0-0.8); Eosinophils # 0.3 10*3/uL (0.0-0.87); Eosinophils % 3.6 % (0.00-10.9); Hematocrit 33.8 VOL% (42.0-52.0); Hemoglobin 11.2 GM/DL (14.0-18.0); Immature Granulocytes % 0.5 %; Immature Granulocytes Absolute 0.04 #; Lymphocytes # 2.9 10*3/uL (1.4-4.0); Lymphocytes % 35.1 % (21.2-54.2); Mean Corpuscular HGB Conc 33.1 GM/DL (32-36); Mean Corpuscular Hemoglobin 29 PG (27-34); Mean Corpuscular Volume 87.8 FL (87-102); Monocytes # 1.1 10*3/uL (0.11-0.8); Monocytes % 13.9 % (1.7-12.7); Neutrophils # 3.8 10*3/uL (1.4-7.4); Neutrophils % 46.7 % (38.7-73.9); Platelet Count 278 T/CUMM (130-400); Red Blood Count 3.85 MC/CUMM (3.8-5.5); Red Cell Distribution Width 13.2 % (9.3-17.3); White Blood Count 8.1 T/CUMM (4-12)
[2018-10-10 06:31] LABS: Calcium 7.4 MG/DL (8.5-10.1); Osmolality,Calculated 285.4 MOS/KG (273-304)
[2018-10-10 07:42] LABS: Platelet Estimate Normal
[2018-10-10 07:43] LABS: Anisocytosis Slight; Macrocytosis Slight
[2018-10-10] MEDS: INSULIN REGULAR 100 UNIT/ML SUBCUT SCH ×4 (09:09→21:15)
[2018-10-10] MEDS: LORATADINE 10 MG TABLET PO SCH (09:10)
[2018-10-10] MEDS: sitaGLIPtin 100 MG TABLET PO SCH (09:10)
[2018-10-10] MEDS: PANTOPRAZOLE 40 MG TABLET PO SCH (09:10)
[2018-10-10] MEDS: LOSARTAN 50 MG TABLET PO SCH (09:10)
[2018-10-10] MEDS: SODIUM CHLORIDE 0.9% 1,000 ML IV SCH ×3 (09:13→20:16)
[2018-10-10] MEDS: SODIUM CHLORIDE 0.65% NASAL SPRAY 45 ML BOTTLE BOTH NARES SCH ×4 (12:24→21:15)
[2018-10-10] MEDS: ENOXAPARIN 40 MG/0.4 ML SYRINGE SUBCUT SCH (21:16)
[2018-10-11] MEDS ORDERED: SODIUM CHLORIDE 0.9% 500 ML IV ONE (00:18)
[2018-10-11] MEDS: AMPICILLIN/SULBACTAM 3,000 MG in SODIUM CHLORIDE 0.9% 100 ML IV SCH ×4 (03:33→23:02)
[2018-10-11 04:21] LABS: Calcium 7.6 MG/DL (8.5-10.1); Potassium 3.8 MMOL/L (3.5-5.1)
[2018-10-11] MEDS: LOSARTAN 50 MG TABLET PO SCH (08:01)
[2018-10-11] MEDS: PANTOPRAZOLE 40 MG TABLET PO SCH (08:01)
[2018-10-11] MEDS: sitaGLIPtin 100 MG TABLET PO SCH (08:01)
[2018-10-11] MEDS: LORATADINE 10 MG TABLET PO SCH (08:01)
[2018-10-11] MEDS: SODIUM CHLORIDE 0.65% NASAL SPRAY 45 ML BOTTLE BOTH NARES SCH ×4 (08:03→23:01)
[2018-10-11] MEDS: INSULIN REGULAR 100 UNIT/ML SUBCUT SCH ×4 (08:07→22:59)
[2018-10-11] MEDS: ENOXAPARIN 40 MG/0.4 ML SYRINGE SUBCUT SCH (22:59)
[2018-10-12] MEDS: AMPICILLIN/SULBACTAM 3,000 MG in SODIUM CHLORIDE 0.9% 100 ML IV SCH ×4 (04:20→20:58)
[2018-10-12] MEDS: SODIUM CHLORIDE 0.9% 1,000 ML IV SCH ×2 (04:23→13:58)
[2018-10-12] MEDS: INSULIN REGULAR 100 UNIT/ML SUBCUT SCH ×4 (08:34→20:57)
[2018-10-12] MEDS ORDERED: LIDOCAINE 1%/EPI INJ 20 ML VIAL ONE (09:18)
[2018-10-12] MEDS ORDERED: BUPIVACAINE 0.5% 50 ML VIAL ONE (09:18)
[2018-10-12] MEDS ORDERED: LIDOCAINE 1% 20 ML VIAL ONE (09:29)
[2018-10-12] MEDS ORDERED: GLUCAGON 1 MG VIAL IM PRN (10:07)
[2018-10-12] MEDS ORDERED: DEXTROSE 50% 25 GM/50 ML VIAL IV PRN (10:07)
[2018-10-12] MEDS ORDERED: PROPOFOL 200 MG/20 ML VIAL IV ONE (10:16)
[2018-10-12] MEDS ORDERED: MIDAZOLAM 2 MG/2 ML VIAL ONE (10:17)
[2018-10-12] MEDS ORDERED: fentaNYL 100 MCG/2 ML VIAL ONE (10:17)
[2018-10-12] MEDS ORDERED: hydrALAZINE 20 MG/1 ML VIAL ONE (10:17)
[2018-10-12] MEDS: PANTOPRAZOLE 40 MG TABLET PO SCH (10:50)
[2018-10-12] MEDS: sitaGLIPtin 100 MG TABLET PO SCH (10:50)
[2018-10-12] MEDS: LOSARTAN 50 MG TABLET PO SCH (10:50)
[2018-10-12] MEDS: LORATADINE 10 MG TABLET PO SCH (10:51)
[2018-10-12] MEDS: SODIUM CHLORIDE 0.65% NASAL SPRAY 45 ML BOTTLE BOTH NARES SCH ×4 (10:51→20:57)
[2018-10-12] MEDS: ENOXAPARIN 40 MG/0.4 ML SYRINGE SUBCUT SCH (20:57)
[2018-10-13] MEDS: AMPICILLIN/SULBACTAM 3,000 MG in SODIUM CHLORIDE 0.9% 100 ML IV SCH ×4 (04:03→21:58)
[2018-10-13] MEDS: PANTOPRAZOLE 40 MG TABLET PO SCH (08:54)
[2018-10-13] MEDS: sitaGLIPtin 100 MG TABLET PO SCH (08:54)
[2018-10-13] MEDS: LOSARTAN 50 MG TABLET PO SCH (08:54)
[2018-10-13] MEDS: INSULIN REGULAR 100 UNIT/ML SUBCUT SCH ×4 (08:55→21:50)
[2018-10-13] MEDS: SODIUM CHLORIDE 0.65% NASAL SPRAY 45 ML BOTTLE BOTH NARES SCH ×4 (08:55→21:51)
[2018-10-13] MEDS: LORATADINE 10 MG TABLET PO SCH (08:56)
[2018-10-13] MEDS: SODIUM CHLORIDE 0.9% 1,000 ML IV SCH (16:18)
[2018-10-13] MEDS: ENOXAPARIN 40 MG/0.4 ML SYRINGE SUBCUT SCH (21:51)
[2018-10-14] MEDS: AMPICILLIN/SULBACTAM 3,000 MG in SODIUM CHLORIDE 0.9% 100 ML IV SCH ×2 (03:24→09:11)
[2018-10-14 04:29] LABS: Basophils % 0.4 % (0.0-0.8); Eosinophils # 0.4 10*3/uL (0.0-0.87); Hematocrit 34.2 VOL% (42.0-52.0); Hemoglobin 10.7 GM/DL (14.0-18.0); Immature Granulocytes Absolute 0.08 #; Lymphocytes # 3.1 10*3/uL (1.4-4.0); Lymphocytes % 39.7 % (21.2-54.2); Mean Corpuscular HGB Conc 31.3 GM/DL (32-36); Mean Corpuscular Hemoglobin 28 PG (27-34); Mean Corpuscular Volume 90.7 FL (87-102); Mean Platelet Volume 10.3 FL (9.6-12.0); Monocytes % 12.7 % (1.7-12.7); Neutrophils # 3.2 10*3/uL (1.4-7.4); Neutrophils % 41.2 % (38.7-73.9); Platelet Count 312 T/CUMM (130-400); Red Blood Count 3.77 MC/CUMM (3.8-5.5); Red Cell Distribution Width 13.4 % (9.3-17.3); White Blood Count 7.9 T/CUMM (4-12)
[2018-10-14 04:59] LABS: Calcium 7.7 MG/DL (8.5-10.1); Osmolality,Calculated 285.3 MOS/KG (273-304); Potassium 3.7 MMOL/L (3.5-5.1)
[2018-10-14] MEDS ORDERED: metFORMIN 850 MG TABLET PO SCH (08:00)
[2018-10-14] MEDS: INSULIN REGULAR 100 UNIT/ML SUBCUT SCH ×2 (09:07→11:51)
[2018-10-14] MEDS: LORATADINE 10 MG TABLET PO SCH (09:08)
[2018-10-14] MEDS: LOSARTAN 50 MG TABLET PO SCH (09:08)
[2018-10-14] MEDS: PANTOPRAZOLE 40 MG TABLET PO SCH (09:09)
[2018-10-14] MEDS: sitaGLIPtin 100 MG TABLET PO SCH (09:09)
[2018-10-14] MEDS: SODIUM CHLORIDE 0.65% NASAL SPRAY 45 ML BOTTLE BOTH NARES SCH (09:09)
[2018-10-14 12:01] VITALS: BP 153/99
== END 2018-10-14 14:05 | disposition home or self-care (01) | DRG 239 ==
LOC: N.ED 14:55 → N.2E 16:42 → SUATTDRO 16:42 → N.2E 17:10
PROVIDERS: ADMIT Internal Medicine; ATTEND Internal Medicine Infectious Disease